=== PATIENT | male | born 1960 | race Caucasian/White ===

== ENCOUNTER 2023-09-16 10:35 | Day surgery (SDC) | payer OTHER ==
[2023-09-13 09:20] VITALS: BMI 34.0
[2023-09-16] MEDS ORDERED: fentaNYL 50 mcg/mL 1 mL Vial ONE (11:47)
[2023-09-16] MEDS ORDERED: Midazolam HCl 2 mg/2 ml Vial ONE (11:47)
[2023-09-16] MEDS ORDERED: Ropivacaine 0.5% HCl/PF (150 MG/30 ML VIAL) ONE (11:48)
[2023-09-16] MEDS ORDERED: fentaNYL PF 100 MCG/2 ML SYRINGE ONE ×2 (12:24→13:50)
[2023-09-16] MEDS ORDERED: PROPOFOL 40 ML ONE (12:24)
[2023-09-16] MEDS ORDERED: Lidocaine 2% PF 5 ML VIAL ONE (12:28)
[2023-09-16] MEDS ORDERED: Sodium Chloride 0.9% 100 ML ONE (12:31)
[2023-09-16] MEDS ORDERED: CEFAZOLIN 2 GM VIAL ONE (12:31)
[2023-09-16] MEDS ORDERED: ePHEDrine Sulfate 50 MG/10 ML VIAL ONE (12:43)
[2023-09-16] MEDS ORDERED: Ondansetron PF 4 MG/2 ML Vial ONE (12:50)
[2023-09-16] MEDS ORDERED: Dexamethasone 4 mg/ml Vial ONE (12:50)
[2023-09-16] MEDS ORDERED: Ketorolac Tromethamine 30 MG (1 mL) VIAL ONE (13:21)
[2023-09-16] MEDS ORDERED: HYDROcodone/Acetaminophen 5/325 mg Tablet ONE (14:53)
== END 2023-09-16 15:25 | disposition home or self-care (01) ==
LOC: SDC 10:35
PROVIDERS: ATTEND Orthopaedic Surgery
PROC: 0QSG04Z Reposition Right Tibia with Internal Fixation Device, Open Approach (ICD-10-PCS; principal; 2023-09-16)
DX: S82.51XA Displaced fracture of medial malleolus of right tibia, initial encounter for closed fracture (principal); S82.864A Nondisplaced Maisonneuve's fracture of right leg, initial encounter for closed fracture; I10 Essential (primary) hypertension; F17.210 Nicotine dependence, cigarettes, uncomplicated; Z98.890 Other specified postprocedural states; Z79.899 Other long term (current) drug therapy; W18.49XA Other slipping, tripping and stumbling without falling, initial encounter
CPT/HCPCS: 93005; 93010; C1713; J1100; J1885; J2001; J2250; J2405; J2704; J2795; J3010; J3490